=== PATIENT | female | born 1960 ===

== ENCOUNTER → 2017-10-27 | Outpatient (CLI) | payer MEDICAID | LOC: DIABETIC 02:56 | DX: E11.9 Type 2 diabetes mellitus without complications (principal) | CPT/HCPCS: G0108 ==

== ENCOUNTER 2018-01-26 04:22 | Outpatient (CLI) | payer MEDICAID | END 2018-01-26 23:59 | disposition home or self-care (01) | LOC: DIABETIC 04:22 | DX: E11.65 Type 2 diabetes mellitus with hyperglycemia (principal) | CPT/HCPCS: G0108 ==